=== PATIENT | male | born 1955 | race Caucasian/White ===

== ENCOUNTER → 2017-02-08 | Outpatient (CLI) | payer BC | LOC: US 12:28 | DX: Q61.00 Congenital renal cyst, unspecified (principal); N40.0 Benign prostatic hyperplasia without lower urinary tract symptoms; N32.9 Bladder disorder, unspecified ==

== ENCOUNTER → 2021-08-08 | Outpatient (CLI) | payer BC ==
[~2021-08-08] MED LIST: COLACE 100MG C100 MG PO; CRESTOR 10 MG T10 MG PO; LORTAB 7.5-3251 EACH PO; NORVASC10 MG PO
== END ==
LOC: EXRD 14:42
DX: N28.1 Cyst of kidney, acquired (principal)
CPT/HCPCS: 76775

== ENCOUNTER → 2022-05-12 | Outpatient (CLI) | payer BC | LOC: US 13:22 | DX: N28.1 Cyst of kidney, acquired (principal) ==